=== PATIENT | male | born 2000 | race Caucasian/White ===

== ENCOUNTER 2022-08-07 11:27 | Emergency (ER) | payer MEDICAID, OTHER ==
[2022-08-07 11:38] VITALS: BP 145/73
--- NOTE | 2022-08-07 11:42 | ED Physician Documentation ---
PD HPI BACK PAIN - Chief complaint Chief Complaint: Back Pain - History obtained from History obtained from: Patient - History of Present Illness Timing - onset: How many weeks ago (1) Timing - duration: Weeks (1) Timing - details: Abrupt onset, Still present, Waxing and waning Location: Lower, Left Quality: Pain, Spasm, Aching Associated symptoms: No: Fever, Weakness, Numbness, Incontinent of urine Worsened by: Movement, Lifting Contributing factors: Lifting, Twisting (he was lifting 50 lb object and twisting it onto truck when felt onset of pain.) Similar symptoms before: Has not had sx before PD PAST MEDICAL HISTORY - Present Medications Home Medications: Ambulatory Orders Medication Instructions Recorded Confirmed Meloxicam [Mobic] 7.5 mg PO BID 10 Days #20 tablet 08/07/22 methocarbamoL [Robaxin] 500 mg PO Q6H PRN #30 tablet 08/07/22 - Allergies Allergies/Adverse Reactions: Allergies Allergy/AdvReac Type Severity Reaction Status Date / Time No Known Drug Allergies Allergy Verified 08/07/22 11:37 PD ED PE NORMAL - Vitals Vital signs reviewed: Yes - General General: Alert and oriented X 3, Well developed/nourished, Other (guarded ROM of the low back. ) - Abdomen Abdomen: Soft, Non tender - Back Back: No spinal TTP (tender in the left paraspinous muscle. No trigger point tender spot per se. ) - Derm Derm: Normal color, Warm and dry, No rash - Neuro Neuro: No motor deficit, No sensory deficit, Other (normal patellar reflexes. ) Results - Vitals Vitals: Vital Signs - 24 hr 08/07/22 11:33 Temperature 36.1 C L Heart Rate 79 Respiratory 16 Rate Blood Pressure 145/73 H O2 Saturation 100 Oxygen O2 Source Room air PD Medical Decision Making - ED course Complexity details: considered differential (low back strain/pain after lift and twist at work. No red flags. Can treat as myofascial pain. I discussed this with patient and he is in concurrence.), d/w patient Departure - Departure Disposition: 01 Home, Self Care Clinical Impression: Low back strain Qualifiers: Encounter type: initial encounter Qualified Code(s): S39.012A - Strain of muscle, fascia and tendon of lower back, initial encounter Condition: Stable Record reviewed to determine appropriate education?: Yes Instructions: ED Sprain Strain Lumbar Prescriptions: Meloxicam [Mobic] 7.5 mg PO BID 10 Days #20 tablet methocarbamoL [Robaxin] 500 mg PO Q6H PRN #30 tablet PRN Reason: Spasms Comments: This does sound like a strain of the muscle of the low back. Low back strains are relatively common and typically treated with heat, stretching and gentle activity as you have been doing. We can also add anti-inflammatories and muscle relaxants. Over prescription for a longer acting anti-inflammatory to be taken twice daily with food for the next 7 to 10 days. Also methocarbamol muscle relaxant to help with stiffness and spasms 2-3 times daily initially and then mainly at night for even the next week or 2 to help reduce recurrent injury. Add Tylenol every 4-6 hours if needed for pain. Off work today and presumed tomorrow and then light duty for another few days until feeling well better. You do not have worrisome symptoms at this point to suggest the need for advanced imaging such as CT or MRI. Typically back pain episodes like this will get better but may take 2 or 3 weeks at times and then back to your normal activity. I sent prescriptions to [facility] in [place]. Forms: Activity restrictions Discharge Date/Time: 08/07/22 12:14
== END 2022-08-07 12:14 | disposition home or self-care (01) ==
LOC: ED 11:27
DX: S39.012A Strain of muscle, fascia and tendon of lower back, initial encounter (principal); X50.0XXA Overexertion from strenuous movement or load, initial encounter; Y99.0 Civilian activity done for income or pay
CPT/HCPCS: 99281; 99283